=== PATIENT | female | born 1995 | race African-American/Black ===

== ENCOUNTER 2019-09-08 19:17 | Emergency (ER) | payer MEDICAID ==
[~2019-09-08] VITALS: Ht 154.9 cm; Wt 53.0 kg
[2019-09-08] MEDS ORDERED: ACETAMINOPHEN 325MG TABLET PO STA (20:50)
[2019-09-08 21:49] LABS: CLARITY URINE CLEAR (CLEAR); COLOR URINE YELLOW (YELLOW); KETONES URINE 1+ (NEGATIVE); LEUKOCYTE ESTERASE URINE 1+ (NEGATIVE); NITRITE URINE NEGATIVE (NEGATIVE); OCCULT BLOOD URINE NEGATIVE (NEGATIVE); PH URINE 7.5 (4.5-8.0); PROTEIN URINE NEGATIVE (NEGATIVE); SPECIFIC GRAVITY URINE 1.021 (1.005-1.030); UROBILINOGEN URINE 0.2 E.U./dL (0.2-1.0)
[2019-09-08] MEDS ORDERED: KETOROLAC 30MG/ML VIAL IV ONE (23:15)
[2019-09-08 23:30] LABS: HEMATOCRIT 40.7 % (36.0-48.0); HEMOGLOBIN 13.5 g/dL (12.0-16.0); MEAN CORPUSCULAR HEMOGLOBIN 30.2 pg (28.0-32.0); MEAN CORPUSCULAR VOLUME 91.1 fL (81.0-99.0); PLATELET 224 x1000/uL (130-400); RED BLOOD CELL COUNT 4.47 mill/uL (4.2-5.4); RED CELL DISTRIBUTION WIDTH 12.7 % (11.6-14.6)
[2019-09-08 23:34] LABS: CHLORIDE 104 mEq/L (98-107)
[2019-09-08 23:42] LABS: CREATINE KINASE 88 IU/L (26-192)
[2019-09-09] MEDS ORDERED: CEFTRIAXONE 1 G PREMIX 50 ML IV ONE
[2019-09-09] MEDS ORDERED: KETOROLAC 60MG/2ML VIAL IM ONE (00:15)
[2019-09-09 00:30] VITALS: BP 104/58
[2019-09-09] MEDS ORDERED: SULFAMETHOXAZOLE/TRIMETHOPRIM 800/160MG TABLET PO ONE (00:30)
== END 2019-09-09 00:30 | disposition home or self-care (01) ==
LOC: ER 19:17
DX: N39.0 Urinary tract infection, site not specified (principal); G43.909 Migraine, unspecified, not intractable, without status migrainosus; G40.909 Epilepsy, unspecified, not intractable, without status epilepticus
CPT/HCPCS: 36415; 71045; 80053; 81003; 81025; 82550; 85027; 87040; 87804; 96372; 99284; J0696; J1885

== ENCOUNTER 2024-07-29 08:28 | Emergency (ER) | payer MEDICAID ==
[~2024-07-29] VITALS: Ht 162.6 cm; Wt 70.5 kg
[2024-07-29 08:48] VITALS: O2SAT 97
[2024-07-29] MEDS ORDERED: KETOROLAC 30MG/ML VIAL IV STA (10:44)
[2024-07-29] MEDS ORDERED: ONDANSETRON HCL 4MG/2ML INJ IV STA (10:44)
[2024-07-29] MEDS: SODIUM CHLORIDE 0.9% 1,000 ML IV ONE (10:45)
[2024-07-29] MEDS: ONDANSETRON HCL 4MG/2ML INJ IV NR (12:00)
[2024-07-29] MEDS: KETOROLAC 15MG/ML VIAL IV NR (12:00)
[2024-07-29 12:52] LABS: BASOPHILS % 0.9 % (0.0-2.0); EOSINOPHILS % 0.7 % (0.0-5.0); HEMATOCRIT. 38.7 % (36.0-48.0); LYMPHOCYTES % 22.3 % (20.0-50.0); MEAN CORPUSCULAR HEMOGLOBIN 31.1 pg (28.0-32.0); MEAN CORPUSCULAR HGB CONC 33.5 g/dL (31.0-37.0); MEAN CORPUSCULAR VOLUME 92.9 fL (81.0-99.0); MEAN PLATELET VOLUME 7.6 fl (7.4-10.4); MONOCYTES % 13.6 % (2.0-8.0); NEUTROPHILS % 62.5 % (40.0-76.0); PLATELET 278 x1000/uL (130-400); RED BLOOD CELL COUNT 4.17 mill/uL (4.2-5.4); RED CELL DISTRIBUTION WIDTH 12.2 % (11.6-14.6); WHITE BLOOD COUNT 6.6 x1000/uL (4.5-11.0)
[2024-07-29 12:55] LABS: HCG SCREEN NEGATIVE
[2024-07-29 13:00] LABS: CHLORIDE 107 mEq/L (98-107); POTASSIUM 3.5 mEq/L (3.5-5.1); PROTHROMBIN TIME 11.6 sec (9.6-11.0); SODIUM 140 mEq/L (136-145)
[2024-07-29 13:01] LABS: CARBON DIOXIDE 24 mEq/L (21-32)
[2024-07-29 13:06] LABS: CREATININE 0.7 mg/dL (0.6-1.0); GLUCOSE 79 mg/dL (70-105); UREA NITROGEN BLOOD 6 mg/dL (9-23)
[2024-07-29] MEDS ORDERED: ONDA-239 PO (13:58)
[2024-07-29 14:46] VITALS: BP 118/90; PULSE 83; RESP 16; TEMP 36.78072; O2SAT 98
== END 2024-07-29 14:47 | disposition home or self-care (01) ==
LOC: ER 08:34
DX: R11.2 Nausea with vomiting, unspecified (principal); G43.909 Migraine, unspecified, not intractable, without status migrainosus
CPT/HCPCS: 99284; 96374; 96361; 96375; 80048; 84703; 83690; 85025; 85610; 36415; J1885; J2405; J7030